=== PATIENT | female | born 1945 | race Caucasian/White ===

== ENCOUNTER 2020-08-20 13:19 | Emergency (ER) | payer MEDICARE, OTHER ==
[2020-08-20] MEDS ORDERED: Sodium Chloride 0.9% 1,000 ML IV SCH (13:30)
[2020-08-20] MEDS ORDERED: Ondansetron 4 MG/2 ML SDV IVPUSH ONE (13:31)
[2020-08-20] MEDS ORDERED: Morphine 4 MG/ML VIAL IVPUSH ONE (13:31)
--- NOTE | 2020-08-20 13:55 | EDM.PDOC ---
ED HPI GENERAL MEDICAL PROBLEM - General Chief Complaint: Abdominal Pain Stated Complaint: LOWER BACK PAIN Time Seen by Provider: 08/20/20 13:25 Source of Information: Reports: Patient History Limitations: Reports: No Limitations - History of Present Illness INITIAL COMMENTS - FREE TEXT/NARRATIVE: states she developed sudden onset of left side lower back yesterday: localized , non radiating then got worse today with pain in the lower abd pain in lower abd seemed to be reduced by urination discussed this with pt states she had renal calculi many years ago Onset: Gradual Onset Date: 08/19/20 Duration: Getting Worse Location: Reports: Abdomen Quality: Reports: Ache, Burning, Dull, Pressure Severity: Moderate Improves with: Reports: None Worsens with: Reports: Movement Associated Symptoms: Reports: Other (nausea , no vomiting) - Related Data Allergies Allergy/AdvReac Type Severity Reaction Status Date / Time Penicillins Allergy Fainting Verified 08/20/20 14:46 Home Meds: Home Meds Baclofen 10 mg PO BID #30 tablet 08/20/20 [Rx] Lidocaine 5% [Lidoderm 5%] 1 patch TOP DAILY #30 patch 08/20/20 [Rx] Multivitamin [Multiple Vitamins] 1 each PO DAILY 08/20/20 [History] Ondansetron [Zofran ODT] 4 mg PO Q6H PRN #20 tab.dis 08/20/20 [Rx] atorvaSTATin [Lipitor] 40 mg PO BEDTIME 08/20/20 [History] Past Medical History Musculoskeletal History: Reports: Back Pain, Chronic, Fracture Other Musculoskeletal History: Left ankle fracture with surgical fixation ED ROS GENERAL - Review of Systems Review Of Systems: Comprehensive ROS is negative, except as noted in HPI. ED EXAM, RENAL/ - Physical Exam Exam: See Below Exam Limited By: No Limitations General Appearance: Alert, WD/WN, No Apparent Distress Eye Exam: Bilateral Eye: EOMI Ears: Normal External Exam Nose: Normal Inspection Throat/Mouth: Normal Oropharynx Head: Atraumatic, Normocephalic Neck: Supple, Non-Tender Respiratory/Chest: No Respiratory Distress, Lungs Clear, Rales Cardiovascular: Regular Rate, Rhythm GI/Abdominal: Distended, Tender (in lower abdomen) Back Exam: Muscle Spasm (in SI joint region), Paraspinal Tenderness (on the left side) Extremities: Normal Inspection, Normal Range of Motion Neurological: Alert, Oriented, CN II-XII Intact Psychiatric: Normal Affect Skin Exam: Warm Course - Vital Signs Last Recorded V/S: Last Vital Signs Temp 36.8 C 08/20/20 15:01 Pulse 96 08/20/20 15:01 Resp 18 08/20/20 15:01 BP 103/52 L 08/20/20 15:01 Pulse Ox 99 08/20/20 15:01 - Orders/Labs/Meds Labs: Laboratory Tests 08/20/20 08/20/20 08/20/20 Range/Units 13:31 13:45 13:45 WBC 9.3 (3.0-10.3) x10-3/uL RBC 4.93 (3.60-5.20) x10(6)uL Hgb 14.5 (11.4-15.5) g/dL Hct 42.4 (34.2-48.2) % MCV 86.1 (76.7-100.5) fL MCH 29.4 (23.9-33.9) pg MCHC 34.1 (31.9-34.8) g/dL RDW 14.0 (12.3-16.5) % Plt Count 231 (151-488) x10(3)uL Sodium 139 (135-145) mmol/L Potassium 3.7 (3.5-5.3) mmol/L Chloride 101 (100-110) mmol/L Carbon Dioxide 27 (21-32) mmol/L BUN 15 (7-18) mg/dL Creatinine 1.0 (0.55-1.02) mg/dL Est Cr Clr Drug Dosing TNP Estimated GFR (MDRD) 54 L (>60) BUN/Creatinine Ratio 15.0 (9-20) Glucose 145 H (80-116) mg/dL Calcium 9.0 (8.6-10.2) mg/dL Total Bilirubin 0.9 (0.1-1.3) mg/dL AST 30 H (5-25) IU/L ALT 33 (12-36) U/L Alkaline Phosphatase 58 (56-112) IU/L C-Reactive Protein (0.5-0.9) mg/dL Total Protein 7.7 (6.0-8.0) g/dL Albumin 4.6 (3.2-4.6) g/dL Globulin 3.1 g/dL Albumin/Globulin Ratio 1.5 Urine Color Yellow (YELLOW) Urine Appearance Clear (CLEAR) Urine pH 7.0 H (5.0-6.5) Ur Specific Tillson 1.010 (1.010-1.025) Urine Protein Negative (NEGATIVE) mg/dL Urine Glucose (UA) Normal (NORMAL) mg/dL Urine Ketones 50 H (NEGATIVE) mg/dL Urine Occult Blood Negative (NEGATIVE) Urine Nitrite Negative (NEGATIVE) Urine Bilirubin Negative (NEGATIVE) Urine Urobilinogen Normal (NEGATIVE) mg/dL Ur Leukocyte Esterase Negative (NEGATIVE) Urine WBC 0-5 (0-5) Ur Squamous Epith Cells Few H (NS,R,O) Urine Bacteria Few H (NS) 08/20/20 Range/Units 13:45 WBC (3.0-10.3) x10-3/uL RBC (3.60-5.20) x10(6)uL Hgb (11.4-15.5) g/dL Hct (34.2-48.2) % MCV (76.7-100.5) fL MCH (23.9-33.9) pg MCHC (31.9-34.8) g/dL RDW (12.3-16.5) % Plt Count (151-488) x10(3)uL Sodium (135-145) mmol/L Potassium (3.5-5.3) mmol/L Chloride (100-110) mmol/L Carbon Dioxide (21-32) mmol/L BUN (7-18) mg/dL Creatinine (0.55-1.02) mg/dL Est Cr Clr Drug Dosing Estimated GFR (MDRD) (>60) BUN/Creatinine Ratio (9-20) Glucose (80-116) mg/dL Calcium (8.6-10.2) mg/dL Total Bilirubin (0.1-1.3) mg/dL AST (5-25) IU/L ALT (12-36) U/L Alkaline Phosphatase (56-112) IU/L C-Reactive Protein < 0.2 L (0.5-0.9) mg/dL Total Protein (6.0-8.0) g/dL Albumin (3.2-4.6) g/dL Globulin g/dL Albumin/Globulin Ratio Urine Color (YELLOW) Urine Appearance (CLEAR) Urine pH (5.0-6.5) Ur Specific [place] (1.010-1.025) Urine Protein (NEGATIVE) mg/dL Urine Glucose (UA) (NORMAL) mg/dL Urine Ketones (NEGATIVE) mg/dL Urine Occult Blood (NEGATIVE) Urine Nitrite (NEGATIVE) Urine Bilirubin (NEGATIVE) Urine Urobilinogen (NEGATIVE) mg/dL Ur Leukocyte Esterase (NEGATIVE) Urine WBC (0-5) Ur Squamous Epith Cells (NS,R,O) Urine Bacteria (NS) Meds: Medications Discontinued Medications Generic Name Dose Route Start Last Admin Trade Name Freq PRN Reason Stop Dose Admin Baclofen 10 mg 08/20/20 15:48 08/20/20 16:09 Baclofen 10 Mg Tab PO 08/20/20 15:49 10 mg ONETIME ONE Administration Sodium Chloride 1,000 mls @ 999 mls/hr 08/20/20 13:30 08/20/20 14:47 Normal Saline IV 999 mls/hr ASDIRECTED MELINA Administration Lidocaine 1 each 08/20/20 15:51 08/20/20 16:09 Lidocaine 4% 1 Each Patch TOP 08/20/20 15:52 1 each NOW STA Administration Morphine Sulfate 4 mg 08/20/20 13:31 08/20/20 14:51 Morphine 4 Mg/Ml Vial IVPUSH 08/20/20 13:32 4 mg ONETIME ONE Administration Ondansetron HCl 4 mg 08/20/20 13:31 08/20/20 14:54 Ondansetron 4 Mg/2 Ml Sdv IVPUSH 08/20/20 13:32 4 mg ONETIME ONE Administration - Re-Assessments/Exams Free Text/Narrative Re-Assessment/Exam: 08/20/20 15:57 Pt had IV zofran morphine and fluids, had BM and abd pain resolved , still had pain localized in the right SI joint region Departure - Departure Time of Disposition: 17:00 Disposition: Home, Self-Care 01 Condition: Fair Clinical Impression: Abdominal pain, Abdominal distension (gaseous), Left paraspinal back pain, Paraspinal muscle spasm - Discharge Information *PRESCRIPTION DRUG MONITORING PROGRAM REVIEWED*: Not Applicable *COPY OF PRESCRIPTION DRUG MONITORING REPORT IN PATIENT TESS: Not Applicable Prescriptions: Baclofen 10 mg PO BID #30 tablet Lidocaine 5% [Lidoderm 5%] 1 patch TOP DAILY #30 patch Ondansetron [Zofran ODT] 4 mg PO Q6H PRN #20 tab.dis PRN Reason: Nausea Instructions: Acute Back Pain, Adult Referrals: Aguila Vanegas MD [Primary Care Provider] - Forms: ED Department Discharge Additional Instructions: Warm compress to affected area 3 times daily use patch and massage area as needed
[2020-08-20] MEDS ORDERED: Baclofen 10 MG Tab PO ONE (15:48)
[2020-08-20] MEDS ORDERED: Lidocaine 4% 1 each Patch TOP STA (15:51)
== END 2020-08-20 16:50 | disposition home or self-care (01) ==
LOC: FB.ED 13:19
DX: M62.830 Muscle spasm of back (principal); R14.3 Flatulence; Z88.0 Allergy status to penicillin; Z79.899 Other long term (current) drug therapy
CPT/HCPCS: 36415; 80053; 81001; 85027; 86140; 96374; 96375; 99284; A9270; J2270; J2405; J7030